=== PATIENT | male | born 1990 | race American Indian/Alaskan Native ===

== ENCOUNTER 2016-11-07 04:33 | Emergency (ER) | payer MEDICAID, OTHER ==
[2016-11-07 04:50] VITALS: BP 129/88
--- NOTE | 2016-11-07 05:16 | XRay Report ---
FINAL REPORT PROCEDURE: XR SPINE CERVICAL 2-3V TECHNIQUE: Cervical spine complete, including AP, lateral, open-mouth odontoid, oblique and flexion and extension studies. CPT 71568 HISTORY: NECK PAIN COMPARISON: No prior studies are available for comparison. FINDINGS: Prevertebral soft tissues: Normal . Alignment in neutral position: Normal . Vertebral body movement with flexion and extension: Physiologic . Vertebral body heights/Disk spaces: Normal . Fracture(s): None . Neural foramina: Normal . Facets: Normal . Bone mineralization: Normal . IMPRESSION: Normal Examination
[2016-11-07] MEDS ORDERED: TYLENOL ONE (06:48)
[2016-11-07] MEDS ORDERED: TYLENOL PO ONE (06:48)
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
== END 2016-11-07 08:18 | disposition home or self-care (01) ==
LOC: ED 04:33
DX: S13.4XXA Sprain of ligaments of cervical spine, initial encounter (principal); R51 Headache; V49.49XA Driver injured in collision with other motor vehicles in traffic accident, initial encounter; Y93.9 Activity, unspecified; Y92.9 Unspecified place or not applicable; Y99.9 Unspecified external cause status
CPT/HCPCS: 70450; 72040; 99284

== ENCOUNTER 2017-03-21 08:26 | Emergency (ER) | payer MEDICAID, OTHER | END 2017-03-21 08:27 | disposition left against medical advice (07) | LOC: ED 08:26 | DX: Z04.1 Encounter for examination and observation following transport accident (principal); Z53.21 Procedure and treatment not carried out due to patient leaving prior to being seen by health care provider ==

== ENCOUNTER 2019-06-23 22:01 | Emergency (ER) | payer SELFPAY ==
[2019-06-23 22:10] VITALS: BP 133/85
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
[2019-06-24] MEDS ORDERED: IBUPROFEN 600 MG TAB PO ONE (04:39)
[2019-06-24] MEDS ORDERED: ACETAMINOPHEN 500 MG TAB PO ONE (04:39)
== END 2019-06-24 05:50 | disposition home or self-care (01) ==
LOC: ED 22:01
DX: M62.830 Muscle spasm of back (principal); M62.838 Other muscle spasm; Z79.899 Other long term (current) drug therapy; V49.49XA Driver injured in collision with other motor vehicles in traffic accident, initial encounter; Y92.410 Unspecified street and highway as the place of occurrence of the external cause; Y93.89 Activity, other specified; Y99.8 Other external cause status
CPT/HCPCS: 72040; 72100; 99283